=== PATIENT | male | born 1995 | race Caucasian/White ===

== ENCOUNTER 2025-03-17 11:45 | Emergency (ER) | payer OTHER, SELFPAY ==
[2025-03-17 11:47] VITALS: BP 124/89
--- NOTE | 2025-03-17 12:13 | ED.GENMED ---
History of Present Illness
General
Chief Complaint: Male Genito-Urinary Symptoms
Source: patient
Exam Limitations: none
Time Seen by Provider: 03/17/25 12:00
History of Present Illness
History of Present Illness:
29yoM with a history of anxiety and ADHD presenting with his father for evaluation of testicular pain. Patient noticed right testicular pain shortly after waking up this morning. Symptoms began around 8 AM. He reports pain throughout the right
testicle which is worse with standing and ambulation and improves if he puts pressure on his groin region. He denies any trauma. He urinated on arrival to the ED and pain is now feeling improved. He had an episode of vomiting earlier today due to
the pain. He also had 2 episodes of vomiting yesterday and states this is not unusual for him due to his 'stomach issues.' He denies any fevers, dysuria, penile discharge, abdominal pain, flank pain.
Past History
Past History
ED Past Medical History: None
ED Past Surgical History: None
Social History
Tobacco: Smoker
Alcohol: None
Drug: Marijuana
Phy Exam
General Physical Exam
General Presentation: well appearing and no apparent distress
General Skin: warm and dry
General Habitus: normal
General Mental: alert
ENT Exam
ENT Exam: normocephalic
Pulmonary Exam
Pulmonary Exam: no respiratory distress
Gastrointestinal Exam
Gastrointestinal Exam: non tender, soft, non distended and no cva tenderness
Genitourinary Exam Male
Exam Male: other (External genitalia appears normal. +Diffuse R testicular tenderness. No scrotal swelling or redness. No palpable hernia.)
Neurological Exam
Neurological Exam: alert
[place] Coma Scale
Eye Opening: Spontaneous
Verbal Response: Oriented
Motor Response: Obeys Commands
GCS Total Score: 15
Skin Exam
Skin Exam: normal color and warm/dry
Psychiatric Exam
Psychiatric Exam: normal mood/affect
Course
Orders/Labs/Results
Orders:
Orders
03/17/25 12:12
Scrotum US [US Scrotum] Urgent
Comment:
Reason For Exam: R testicular pain
03/17/25 12:40
Urinalysis Reflex To Culture Urgent
Date Specimen was Collected: 03/17/25
Time Specimen was Collected: 12:18
Chlamydia/GC by PCR Urgent
HUNG Source: Urine
Specimen Description:
Source:: URINE
Date Specimen was Collected: 03/17/25
Time Specimen was Collected: 12:18
03/17/25 13:08
Ibuprofen [Motrin] 600 mg PO NOW STA
Oxycodone/Acetaminophen [Percocet 5/325] 1 tablet PO NOW STA
Vital Signs
Initial and Last Documented VS:
Initial Vital Signs
Temp Pulse Resp BP Pulse Ox
98.1 F 74 16 124/89 96
03/17/25 11:47 03/17/25 11:47 03/17/25 11:47 03/17/25 11:47 03/17/25 11:47
Last Documented Vital Signs
Temp Pulse Resp BP Pulse Ox
98.1 F 79 20 135/76 99
03/17/25 11:47 03/17/25 13:00 03/17/25 13:00 03/17/25 13:00 03/17/25 13:00
MDM/Problems Addressed
Differential Diagnosis Includes:
29yoM here with atraumatic R testicular pain that began this morning. Improved after urination. No associated abd pain/flank pain. VSS. He is well appearing in no distress. Testicular tenderness noted without scrotal edema/skin changes.
Differential diagnosis includes: Orchitis, epididymitis, testicular torsion, hydrocele, no palpable hernia on exam
Initial ED plan: Check UA, GC/chlamydia testing, and scrotal ultrasound.
*Pulse Oximetry
SaO2: 96
Oxygen Mode of Delivery: Room air
Patient hypoxic: no (96%)
*Critical Care Note
Total Time (30-74mins, 75-104mins- exclusive of procedures): Not Applicable
Update Note
Update Note:
UA bland without hematuria or signs of infection. Ultrasound negative for acute findings. Incidental finding of a small left epididymal head cyst vs. spermatocele. Unclear etiology of symptoms. Supportive care discussed including scrotal
elevation, ice, and NSAIDs. Advised follow-up with PCP and urology. Strict ED return precautions reviewed and patient discharged in stable condition.
ED Attending Note
-
Portions of this chart may have been created with voice recognition software.� Occasional wrong word or��sound alike� substitutions may have occurred due to the inherent limitations of voice recognition software.
Discharge Plan
Departure
Patient Disposition: Home (Routine Discharge)
Date of Disposition: 03/17/25
Time of Disposition: 13:53
Patient with high blood pressure during this ER visit?: No
Discharge Problem:
Pain in right testicle
Instructions: How to Perform a Testicular Self-Exam
Prescriptions:
No Action
lorazepam 0.5 MG tablet
0.5 mg PO DAILY PRN (Reason: anxiety) Qty: 10 0RF
Referrals:
Malcom Bryant MD [Active, Urology]
Christian Adam MD [Family Provider, Family Practice]
Activity Restrictions/Additional Instructions:
Elevate your scrotum to help with pain and apply ice. Take ibuprofen 400mg-600mg every 6 hours as needed.
Please call today to schedule follow-up appointments with your family doctor and urology. Return to the ER with any new or worsening symptoms including fever or severe pain.
Interventions
Interventions:
*Risk Screen - Suicide Last Done: 03/17/25 11:47
*General Assessment Last Done: 03/17/25 13:59
*Neglect/Abuse Screening Last Done: 03/17/25 11:47
*ED- Fall Risk Assessment Last Done: 03/17/25 13:59
*ED COVID-19 Vaccine History Last Done: 03/17/25 13:59
*Nursing Disposition Last Done: 03/17/25 13:59
ED-Male Genitourinary Assessment Last Done: 03/17/25 14:00
Discharge Date and Time
Discharge Date/Time: 03/17/25 14:00
Print Language: [id number]
[2025-03-17 13:00] VITALS: BP 135/76
[2025-03-17 13:04] LABS: Urine Character Clear (Clear)
[2025-03-17] MEDS: PERCOCET 5/325 1 TABLET PO (13:27)
[2025-03-17] MEDS: MOTRIN 600 MG PO (13:27)
== END 2025-03-17 14:00 | disposition home or self-care (01) ==
LOC: EMR 11:45
PROVIDERS: Physician Assistant; EMERGENCY PHYSICIAN Emergency Medicine; FAMILY PHYSICIAN Family Medicine
DX: N50.811 Right testicular pain (principal); N50.3 Cyst of epididymis; F17.200 Nicotine dependence, unspecified, uncomplicated
CPT/HCPCS: 99284; 76870; 81003; 87491; 87591; 93976